=== PATIENT | female | born 1980 ===

== ENCOUNTER 2018-05-07 21:57 | Inpatient (IN) ==
[2018-05-07] MEDS ORDERED: Oxytocin 20 units/ LR 1000 mL 20 UNIT/1,000 ML BAG IVC ONE (22:04)
--- NOTE | 2018-05-07 22:49 | OB/GYN History & Physical ---
Date of Encounter: 05/07/18 Time of Encounter: 22:22 Assessment and Plan (1) 38 weeks gestation of Current visit: Yes Status: Acute (2) SROM (spontaneous rupture of membranes) Current visit: Yes Status: Acute (3) Active labor at term Current visit: Yes Status: Acute (4) Intrauterine Current visit: Yes Status: Acute Admit to labor and delivery for observation of labor Delivery is eminent Dr. Romero at bedside Anticipate vaginal delivery (5) Advanced maternal age during in third trimester Current visit: Yes Status: Acute History of Present Illness Chief complaint: Active labor HPI: Ms. Dominguez is a 38 year old female at 38 weeks and 4 days gestation with an estimated date of of 05/17/18 dated by LMP. She presents with complaint of contractions starting at 1600 this afternoon. Her membranes spontaneously ruptured at 2045 tonight. She reports clear fluid. She endorses good movement and denies vaginal bleeding. She was followed by Dr. Ponce during this . Her was complicated by advanced maternal age. records are available electronically and have been reviewed. Labs: A+ GBS- HIV- Hep B unknown - drawn and pending GC/CL- Varicella immune Rubella immune Obstetrical History - Pregnancies : 2 Para: 1 Term: 1 ( # 1: 2013,Female,5lbs 9oz,vaginal,induction 39 weeks due to headaches ) : 0 Ab's: 0 Livin Review of System OB All systems PM: reviewed and no additional remarkable complaints except as stated Exam - Constitutional Constitutional: well developed, well nourished, average body habitus, moderate distress - HEENT HEENT: Normocephaly, Mucus Membranes Moist - Neck Neck exam: full ROM - Lungs Respiratory exam: CTAB - Cardiovascular Cardiovascular exam: RRR, +S1, +S2 - Breasts Breast: bilateral: normal - Abdomen Abdomen: Present: bowel sounds normal, gravid, non tender - Extremities Extremities exam: normal capillary refill, normal inspection, radial pulses palpable and symmetrical - Vulva Vulva: bilateral: normal - Vagina Vagina: Present: normal moisture - Cervix Dilation: 10 Effacement: 100 Station: +2 - Uterus Uterus exam: Present: normal size, normal contour - Adnexa Adnexa: bilateral: normal - Anus/Rectum Anus/Rectum: Present: normal perianal skin Results All other labs normal.
--- NOTE | 2018-05-07 23:05 | OB/GYN Procedure Note ---
Delivery - Delivery Date: 05/07/18 Provider: Greer Nicole Intrapartum events: none Delivery induction: none Delivery monitor: external FHT Anesthesia: local Quantitated Blood Loss: 250 - Infant (s) Infant A Delivery Date: 05/07/18 Infant Delivery Time: 22:18 Presentation: vertex Position: DAISHA Route of delivery: Gender: Female Viability: Viable Pounds: 6 Ounces: 12 Weight Gram: 3.075 kg at 1 minute: 8 at 5 mins: 9 Shoulder Dystocia: not encountered Specimens collected: cord blood Placenta: spontaneous - Repair Episiotomy: none Laceration Description: Perineal - 2nd Degree - Complications Delivery complications: none Delivery comments: This is a 38 year old G2 now P1 who was admitted for active labor. She progressed rapidly to the second stage of labor. She pushed for about 20 minutes. She delivered a viable, male , "Cosme" over a 2nd degree laceration. A nuchal cord was identified. The cord was unable to be reduced and thus the infant was delivered through the cord. A shoulder dystocia was not encountered. The infant was placed on the maternal abdomen and allowed to transition spontaneously. The cord was double clamped by research environmental scientist after pulsations ceased and cut by research environmental scientist. scores were 8 at 1 minute and 9 at 5 minutes. The infant weighed 6lbs 12oz (3075g). The placented delivered "Stauffer", spontaneously, intact with a 3-vessel cord. Inspection revealed a second-degree laceration. Laceration was repaired with local anesthesia and a 3-0 Monocryl suture. The uterus was firm with no active bleeding. EBL was 250 mL. Placenta and umbilical artery blood gases were not sent. There were no complications during the procedure. Mom and baby are skin to skin following delivery. - Disposition Mom disposition: stable in LDR [place] disposition: stable in LDR
[2018-05-07] MEDS ORDERED: Lidocaine 1% 20 ML MDV INFILT PRN (23:09)
[2018-05-07] MEDS ORDERED: Ringers Solution, Lactated 1,000 ML IVC SCH (23:15)
[2018-05-08 00:26] LABS: Basophils # 0.1 K/mcL (0.0-0.2); Basophils % 0.6 %; Eosinophils # 0.1 K/mcL (0.0-0.6); Eosinophils % 1.7 %; Hematocrit 36.8 % (35.3-44.9); Hemoglobin 12.5 g/dL (11.5-15.4); Immature Granulocytes % 0.5 % (0-4); Lymphocytes # 1.9 K/mcL (0.6-4.6); Lymphocytes % 22.8 %; Mean Corpuscular Hemoglobin 30.1 pg (28.0-33.3); Mean Corpuscular Volume 88.7 fL (83.0-100.0); Mean Platelet Volume 10.3 fL (9.4-12.4); Monocytes # 0.9 K/mcL (0.0-1.3); Monocytes % 10.1 %; Neutrophils # 5.4 K/mcL (1.6-8.9); Platelet Count 279 K/mcL (140-400); Red Blood Count 4.15 M/mcL (3.82-4.97); Red Cell Distribution Width 12.5 % (11.5-14.5); Segmented Neutrophils % 64.3 %
[2018-05-08] MEDS ORDERED: Benzocaine/Menthol 56 GM AEROSOL SPRAY TP PRN (01:39)
[2018-05-08] MEDS ORDERED: Oxytocin 20 units/ LR 1000 mL 20 UNIT/1,000 ML BAG IVC SCH (01:39)
[2018-05-08] MEDS ORDERED: Acetaminophen 325 MG TABLET PO PRN (01:39)
[2018-05-08] MEDS: Ibuprofen 600 MG TABLET PO PRN ×3 (02:43→22:41)
[2018-05-08] MEDS ORDERED: Prenatal Vit/FA 1 EACH TABLET PO SCH (09:00)
--- NOTE | 2018-05-08 09:31 | OB/GYN Progress Note ---
Date of Encounter: 05/08/18 Time of Encounter: 09:31 - Assessment and Plan (1) Vaginal delivery Current Visit: Yes Status: Acute Continue routine care Anticipate discharge home tomorrow Subjective - Subjective Principal diagnosis: Vaginal delivery Interval history: S/P Vaginal delivery day 1 Pain well controlled Lochia light without clots VSS Tolerating regular diet Passing flatus and urinating without difficulty Discharge home tomorrow Patient reports: appetite normal, voiding normally, pain well controlled, ambulating normally [place]: doing well, nursing well Objective - Latest Vital Signs Latest vital signs: Vital Signs Temp Pulse Resp BP Pulse Ox 05/08/18 08:21 98.7 F 74 16 111/71 96 05/08/18 03:40 98.3 F 71 16 121/71 96 05/08/18 02:30 98.7 F 69 16 126/80 05/08/18 01:30 98.1 F 73 16 125/84 98 Intake and Output 05/07/18 05/08/18 05/08/18 23:59 07:59 15:59 Intake Total 400 / 400 Output Total 800 / 800 2200 / 2200 Balance -400 / -400 -2200 / -2200 Intake: Oral 400 / 400 Output: Urine 800 / 800 2200 / 2200 Other: Weight 67.132 kg - Exam Lungs: bilateral: normal Chest: Normal S1, Normal S2 Extremities: Present: normal Abdomen: Present: normal appearance, soft. Absent: gravid Uterus: Present: normal, firm Uterus Position: At Umbilicus, Midline - Labs Labs: Laboratory Results - last 24 hr 05/07/18 05/07/18 22:00 22:00 WBC 8.4 RBC 4.15 Hgb 12.5 Hct 36.8 MCV 88.7 MCH 30.1 MCHC 34.0 RDW 12.5 Plt Count 279 MPV 10.3 Immature Gran % 0.5 Seg Neutrophils % 64.3 Lymphocytes % 22.8 Monocytes % 10.1 Eosinophils % 1.7 Basophils % 0.6 Neutrophils # 5.4 Lymphocytes # 1.9 Monocytes # 0.9 Eosinophils # 0.1 Basophils # 0.1 Hep Bs Antigen Nonreactive
[2018-05-09 08:24] VITALS: BP 129/87
--- NOTE | 2018-05-09 09:15 | Discharge Summary ---
Date of Encounter: 05/09/18 Time of Encounter: 09:13 - Discharge Diagnosis (1) Breast feeding status of mother Priority: Secondary Status: Acute Comments: support prn (2) Vaginal delivery Priority: Primary Status: Acute Comments: Continue routine care discharge home today follow up with Dr. Ponce in 4-6 weeks - Discharge Medications Home Medications: Benzocaine/Menthol [place] [Dermoplast [place]] 1 appl TP QID PRN aerosol 05/09/18 [Rx] Docusate [Colace] 100 mg PO BID capsule 05/09/18 [Rx] Ibuprofen [Motrin] 600 mg PO Q6HR PRN tablet 05/09/18 [Rx] Vit/FA 1 each PO DAILY tablet 05/09/18 [Rx] Allergies/Adverse Reactions: Allergy/AdvReac Type Severity Reaction Status Date / Time No Known Allergies Allergy Verified 05/08/18 02:57 Data Procedures and tests throughout hospitalization: Laboratory Tests 05/07/18 05/07/18 22:00 22:00 WBC 8.4 RBC 4.15 Hgb 12.5 Hct 36.8 MCV 88.7 MCH 30.1 MCHC 34.0 RDW 12.5 Plt Count 279 MPV 10.3 Immature Gran % 0.5 Seg Neutrophils % 64.3 Lymphocytes % 22.8 Monocytes % 10.1 Eosinophils % 1.7 Basophils % 0.6 Neutrophils # 5.4 Lymphocytes # 1.9 Monocytes # 0.9 Eosinophils # 0.1 Basophils # 0.1 Hep Bs Antigen Nonreactive Date of admission: 05/07/18 21:57 Consults: 05/08/18 01:39 Consult to [employer] [CONS] Routine Comment: Vaginal delivery, consult needed Discharging clinician: Cheyenne Andrade Anticipated date of discharge: 05/09/18 - Patient Status Disposition: Home, Self-Care Condition: Good Functional capacity at discharge: independent ambulation - Discharge Instructions Follow Up With: Luna Ponce DO [Partnered Physician] - - Diet and Activity Activity: increase activity as tolerated Diet: regular diet Hospital Course Reason for admission: active labor Delivery: Episiotomy: none Laceration: 2nd degree Other procedures: none complications: none Discharge diagnosis: IUP at term delivered baby: male (breast feeding) Time Attestation: Total time spent providing and/or coordinating discharge services: Time Spent: Less than 30 minutes Exam - Constitutional Vitals: Temp Pulse Resp BP Pulse Ox 96 F L 68 16 129/87 96 05/09/18 08:22 05/09/18 08:22 05/09/18 08:22 05/09/18 08:22 05/09/18 08:22 General appearance IM: A&O X 3, pleasant, answers questions appropriately - Respiratory Respiratory exam: Present: CTAB - Cardiovascular Cardiovascular exam IM: Present: RRR, +S1, +S2 - GI/Abdominal GI/Abdominal exam IM: normal bowel sounds - Uterine Tone: Firm Uterus Position: 1 Finger Below Umbilicus, Midline - Extremities Exam Extremities exam IM: Present: full ROM, normal capillary refill, normal inspection - Neurological Exam Neurological exam: alert, oriented X3, reflexes normal
== END 2018-05-09 11:03 | disposition home or self-care (01) | DRG 807 ==
LOC: 1NENULAB 21:57 → 1NENUOBS 05-08 01:14
PROVIDERS: ADMIT Advanced Practice Midwife; ATTEND Advanced Practice Midwife